=== PATIENT | male | born 1945 | race Caucasian/White ===

== ENCOUNTER 2017-11-12 09:10 | Day surgery (SDC) | payer MEDICARE, OTHER ==
[~2017-11-12] VITALS: Ht 182.9 cm; Wt 105.8 kg
[~2017-11-12 09:10] MED LIST: ACET325 PO; ASPI81CH; ASPI81CH PO; ASPI81EC; ATOR10; ATOR40TA PO; CLOB.05TC; DIAZ5 PO; DIPH50; DIPH50 PO; FLEC100; GALA8 PO; HYDR-86 PO; IBUP800; LATA.005SO; LOSA50 PO; MELA3; MELA3 PO; METO50 PO; MIRALAX17 GM PO; MULVITA; OMEPRAZOLE MAGN20 MG PO; POTCHL20ER PO; TAMS.4ER PO; TIMO.25OPS BOTHEYES; TIMOPTIC 0.5%1 EACH BOTHEYES; TRAM50; TRAZ100; TRAZ100 PO; TRIHYD253B PO; TRIHYD5075; Xalatan2.5 ML BOTHEYES; ZIOPTAN 0.00151 EACH BOTHEYES; ZOLP10; ZOLP10 PO
== END 2017-11-12 11:39 | disposition home or self-care (01) ==
LOC: ORSCSDS 09:10
PROVIDERS: Internal Medicine Gastroenterology
PROC: 0DJD8ZZ Inspection of Lower Intestinal Tract, Via Natural or Artificial Opening Endoscopic (ICD-10-PCS; principal; 2017-11-12 10:30)
DX: Z12.11 Encounter for screening for malignant neoplasm of colon (principal); K57.30 Diverticulosis of large intestine without perforation or abscess without bleeding; Z83.71 Family history of colonic polyps; I10 Essential (primary) hypertension; Z95.0 Presence of cardiac pacemaker; Z87.891 Personal history of nicotine dependence; I48.0 Paroxysmal atrial fibrillation; Z79.82 Long term (current) use of aspirin; Z79.899 Other long term (current) drug therapy
CPT/HCPCS: J7120

== ENCOUNTER 2018-04-21 17:32 | Emergency (ER) | payer MEDICARE, OTHER ==
[~2018-04-21] VITALS: Ht 182.9 cm; Wt 106.1 kg
== END 2018-04-21 19:10 | disposition home or self-care (01) ==
LOC: ER 17:32
DX: T83.091A Other mechanical complication of indwelling urethral catheter, initial encounter (principal); I48.91 Unspecified atrial fibrillation; Z88.2 Allergy status to sulfonamides; Z79.899 Other long term (current) drug therapy; Z79.82 Long term (current) use of aspirin
CPT/HCPCS: 99282

== ENCOUNTER 2019-02-26 06:53 | Emergency (ER) | payer MEDICARE, OTHER ==
[~2019-02-26] VITALS: Ht 182.9 cm; Wt 108.9 kg
[~2019-02-26 06:53] MED LIST changes: +TIMO.5OPSO BOTHEYES; -TIMOPTIC 0.5%1 EACH BOTHEYES
[2019-02-26] MEDS ORDERED: Norco 7.5-3251 EACH PO (07:27)
[2019-02-26] MEDS ORDERED: MYRBETRIQ50 MG PO (07:30)
[2019-02-26] MEDS ORDERED: Prednisone20 MG PO (08:12)
[2019-02-26] MEDS ORDERED: Robaxin-750750 MG PO (08:12)
== END 2019-02-26 08:18 | disposition home or self-care (01) ==
LOC: ER 06:53
DX: M54.17 Radiculopathy, lumbosacral region (principal); I48.91 Unspecified atrial fibrillation
CPT/HCPCS: 72100; 99283-25; J7512

== ENCOUNTER → 2019-08-27 | Outpatient (CLI) | payer MEDICARE, OTHER ==
[~2019-08-27] MED LIST changes: +MYRBETRIQ50 MG PO; +Norco 7.5-3251 EACH PO; +Prednisone20 MG PO; +Robaxin-750750 MG PO
== END | disposition home or self-care (01) ==
LOC: LAB SHORT 13:43 → PLD 13:43
DX: D48.5 Neoplasm of uncertain behavior of skin (principal)
CPT/HCPCS: 88305

== ENCOUNTER → 2020-12-30 | Outpatient (CLI) | payer MEDICARE, OTHER ==
[2020-12-30 13:17] LABS: Stool Occult Bld Immuno 1 Negative (NEGATIVE)
== END | disposition home or self-care (01) ==
LOC: LAB SHORT 08:00 → LAB 08:00
PROVIDERS: Family Medicine
DX: K92.1 Melena (principal)
CPT/HCPCS: 82274

== ENCOUNTER → 2021-06-21 | Outpatient (CLI) | payer MEDICARE, OTHER | END | disposition home or self-care (01) | LOC: LAB SHORT 13:02 | PROVIDERS: Family Medicine | DX: M51.36 Other intervertebral disc degeneration, lumbar region (principal); G89.4 Chronic pain syndrome | CPT/HCPCS: G0480 ==

== ENCOUNTER → 2022-04-14 | Outpatient (CLI) | payer MEDICARE, OTHER ==
[2022-04-14 12:28] LABS: Hematocrit 38.2 % (37.0-53.0); Hemoglobin 13.3 g/dL (13.5-17.5); Mean Corpuscular HGB 30.3 pg (26.0-34.0); Mean Corpuscular HGB Conc 34.8 g/dL (31.5-36.5); Mean Corpuscular Volume 87 fL (80-100); Mean Platelet Volume 9.3 fL (9.1-12.4); Platelet Count 196 K/mm3 (150-400); RDW Coefficient Variation 13.6 % (11.7-14.2); RDW Standard Deviation 43.2 fL (35.1-46.3); Red Blood Cell Count 4.39 M/mm3 (4.30-5.90); White Blood Cell Count 4.13 K/mm3 (4.00-11.30)
== END | disposition home or self-care (01) ==
LOC: LAB 11:39 → LAB SHORT 11:39
PROVIDERS: Family Medicine
DX: D64.9 Anemia, unspecified (principal)
CPT/HCPCS: 36415; 85027

== ENCOUNTER 2022-06-29 14:08 | Emergency (ER) | payer MEDICARE, OTHER ==
[~2022-06-29] VITALS: Ht 182.9 cm; Wt 117.9 kg
[2022-06-29 14:47] LABS: BASOPHILS ABSOLUTE AUTO 0.03 K/mm3 (0.00-0.23); BASOPHILS PERCENT AUTO 1 % (0-2); EOSINOPHILS ABSOLUTE AUTO 0.06 K/mm3 (0.00-0.68); EOSINOPHILS PERCENT AUTO 1 % (0-6); Hematocrit 39.8 % (37.0-53.0); Hemoglobin 13.5 g/dL (13.5-17.5); IMMATURE GRAN ABSOLUTE AUTO 0.03 K/mm3 (0.00-0.10); IMMATURE GRAN PERCENT AUTO 1 % (0-1); LYMPHOCYTES ABSOLUTE AUTO 1.14 K/mm3 (0.84-5.20); LYMPHOCYTES PERCENT AUTO 27 % (21-46); MONOCYTES PERCENT AUTO 12 % (4-13); Mean Corpuscular HGB 29.5 pg (26.0-34.0); Mean Corpuscular HGB Conc 33.9 g/dL (31.5-36.5); Mean Corpuscular Volume 87 fL (80-100); Mean Platelet Volume 9.3 fL (9.1-12.4); NEUTROPHILS PERCENT AUTO 58 % (41-73); Platelet Count 204 K/mm3 (150-400); RDW Coefficient Variation 13.8 % (11.7-14.2); RDW Standard Deviation 43.7 fL (35.1-46.3); Red Blood Cell Count 4.57 M/mm3 (4.30-5.90); White Blood Cell Count 4.16 K/mm3 (4.00-11.30)
[2022-06-29 15:04] LABS: Albumin, Blood 3.6 g/dL (3.4-5.0); Albumin/Globulin Ratio 0.9 (0.8-1.8); Bilirubin, Total 0.6 mg/dL (0.1-1.0); Bun/Creatinine Ratio 24.3 (12.0-20.0); Calcium, Blood 9.1 mg/dL (8.5-10.1); Creatinine, Blood 1.15 mg/dL (0.60-1.20); Globulin, Blood 4.1 g/dL (2.2-4.0); Potassium, Blood 4.7 mmol/L (3.5-5.5); Total Protein, Blood 7.7 g/dL (6.4-8.2)
== END 2022-06-29 20:35 | disposition home or self-care (01) ==
LOC: ER 14:08
PROVIDERS: Student in an Organized Health Care Education/Training Program
DX: H81.392 Other peripheral vertigo, left ear (principal); H61.22 Impacted cerumen, left ear; Z88.2 Allergy status to sulfonamides; Z79.899 Other long term (current) drug therapy; Z79.82 Long term (current) use of aspirin; I48.91 Unspecified atrial fibrillation; Z79.52 Long term (current) use of systemic steroids
CPT/HCPCS: 36415; 70450; 80053; 85025; 93005; 93010; 99284-25; A9270

== ENCOUNTER → 2022-09-26 | Outpatient (CLI) | payer MEDICARE, OTHER ==
[2022-09-26 09:56] LABS: BASOPHILS ABSOLUTE AUTO 0.01 K/mm3 (0.00-0.23); BASOPHILS PERCENT AUTO 0 % (0-2); EOSINOPHILS ABSOLUTE AUTO 0.08 K/mm3 (0.00-0.68); EOSINOPHILS PERCENT AUTO 2 % (0-6); Hematocrit 37.9 % (37.0-53.0); Hemoglobin 12.9 g/dL (13.5-17.5); IMMATURE GRAN ABSOLUTE AUTO 0.05 K/mm3 (0.00-0.10); IMMATURE GRAN PERCENT AUTO 1 % (0-1); LYMPHOCYTES ABSOLUTE AUTO 0.69 K/mm3 (0.84-5.20); LYMPHOCYTES PERCENT AUTO 19 % (21-46); MONOCYTES ABSOLUTE AUTO 0.34 K/mm3 (0.16-1.47); MONOCYTES PERCENT AUTO 9 % (4-13); Mean Corpuscular HGB 29.5 pg (26.0-34.0); Mean Corpuscular Volume 87 fL (80-100); NEUTROPHILS PERCENT AUTO 68 % (41-73); Platelet Count 186 K/mm3 (150-400); RDW Coefficient Variation 14.3 % (11.7-14.2); RDW Standard Deviation 44.8 fL (35.1-46.3); Red Blood Cell Count 4.38 M/mm3 (4.30-5.90); White Blood Cell Count 3.67 K/mm3 (4.00-11.30)
[2022-09-26 10:03] LABS: Albumin, Blood 3.5 g/dL (3.4-5.0); Albumin/Globulin Ratio 0.8 (0.8-1.8); Bilirubin, Total 0.4 mg/dL (0.1-1.0); Bun/Creatinine Ratio 19.4 (12.0-20.0); Creatinine, Blood 1.6 mg/dL (0.60-1.20); Globulin, Blood 4.2 g/dL (2.2-4.0); Potassium, Blood 3.9 mmol/L (3.5-5.5); Total Protein, Blood 7.7 g/dL (6.4-8.2)
[2022-09-26 10:15] LABS: Source, Urine Clean Catch
[2022-09-26 10:27] LABS: Bacteria Few /hpf; Red Blood Cells, Urine TNTC /hpf (0-2); Squamous Epithelial Cells Rare /hpf (Few)
== END | disposition home or self-care (01) ==
LOC: LAB SHORT 09:20 → LAB 09:20
PROVIDERS: Physician Assistant
DX: R31.9 Hematuria, unspecified (principal)
CPT/HCPCS: 80053; 81015; 85025; 87086

== ENCOUNTER → 2022-10-06 | Outpatient (CLI) | payer MEDICARE, OTHER | END | disposition home or self-care (01) | LOC: LAB SHORT 08:40 → LAB 08:40 | DX: R31.9 Hematuria, unspecified (principal) | CPT/HCPCS: 87086 ==

== ENCOUNTER 2022-11-08 04:34 | Day surgery (SDC) | payer MEDICARE, OTHER | END 2022-11-08 22:44 | disposition home or self-care (01) | LOC: HBO 04:34 | DX: L59.8 Other specified disorders of the skin and subcutaneous tissue related to radiation (principal); N30.41 Irradiation cystitis with hematuria | CPT/HCPCS: G0277 ==

== ENCOUNTER 2022-11-09 01:35 | Day surgery (SDC) | payer MEDICARE, OTHER | END 2022-11-09 22:56 | disposition home or self-care (01) | LOC: HBO 01:35 | DX: N30.41 Irradiation cystitis with hematuria (principal); L59.8 Other specified disorders of the skin and subcutaneous tissue related to radiation | CPT/HCPCS: G0277 ==

== ENCOUNTER 2022-11-10 01:00 | Day surgery (SDC) | payer MEDICARE, OTHER | END 2022-11-10 22:40 | disposition home or self-care (01) | LOC: HBO 01:00 | DX: L59.8 Other specified disorders of the skin and subcutaneous tissue related to radiation (principal); N30.41 Irradiation cystitis with hematuria | CPT/HCPCS: G0463 ==

== ENCOUNTER 2022-11-20 00:29 | Day surgery (SDC) | payer MEDICARE, OTHER | END 2022-11-20 22:59 | disposition home or self-care (01) | LOC: HBO 00:29 | DX: L59.8 Other specified disorders of the skin and subcutaneous tissue related to radiation (principal); N30.41 Irradiation cystitis with hematuria | CPT/HCPCS: G0277 ==

== ENCOUNTER 2022-11-21 01:15 | Day surgery (SDC) | payer MEDICARE, OTHER | END 2022-11-21 22:56 | disposition home or self-care (01) | LOC: HBO 01:15 | DX: L59.8 Other specified disorders of the skin and subcutaneous tissue related to radiation (principal); N30.41 Irradiation cystitis with hematuria | CPT/HCPCS: G0277 ==

== ENCOUNTER 2022-11-22 04:07 | Day surgery (SDC) | payer MEDICARE, OTHER | END 2022-11-22 23:05 | disposition home or self-care (01) | LOC: HBO 04:07 | DX: L59.8 Other specified disorders of the skin and subcutaneous tissue related to radiation (principal); N30.41 Irradiation cystitis with hematuria | CPT/HCPCS: G0277 ==

== ENCOUNTER 2022-11-23 02:59 | Day surgery (SDC) | payer MEDICARE, OTHER | END 2022-11-23 22:41 | disposition home or self-care (01) | LOC: HBO 02:59 | DX: L59.8 Other specified disorders of the skin and subcutaneous tissue related to radiation (principal); N30.41 Irradiation cystitis with hematuria | CPT/HCPCS: G0277 ==

== ENCOUNTER 2022-11-28 02:56 | Day surgery (SDC) | payer MEDICARE, OTHER | END 2022-11-28 23:20 | disposition home or self-care (01) | LOC: HBO 02:56 | DX: L59.8 Other specified disorders of the skin and subcutaneous tissue related to radiation (principal); N30.41 Irradiation cystitis with hematuria | CPT/HCPCS: G0277 ==

== ENCOUNTER 2022-11-29 01:22 | Day surgery (SDC) | payer MEDICARE, OTHER | END 2022-11-29 23:14 | disposition home or self-care (01) | LOC: HBO 01:22 | DX: L59.8 Other specified disorders of the skin and subcutaneous tissue related to radiation (principal); N30.41 Irradiation cystitis with hematuria | CPT/HCPCS: G0277 ==

== ENCOUNTER 2022-11-30 04:09 | Day surgery (SDC) | payer MEDICARE, OTHER | END 2022-11-30 23:00 | disposition home or self-care (01) | LOC: HBO 04:09 | DX: N30.41 Irradiation cystitis with hematuria (principal); L59.8 Other specified disorders of the skin and subcutaneous tissue related to radiation | CPT/HCPCS: G0277 ==

== ENCOUNTER 2022-12-01 03:12 | Day surgery (SDC) | payer MEDICARE, OTHER | END 2022-12-01 22:47 | disposition home or self-care (01) | LOC: HBO 03:12 | DX: L59.8 Other specified disorders of the skin and subcutaneous tissue related to radiation (principal); N30.41 Irradiation cystitis with hematuria | CPT/HCPCS: G0277 ==

== ENCOUNTER 2022-12-04 02:17 | Day surgery (SDC) | payer MEDICARE, OTHER | END 2022-12-04 22:55 | disposition home or self-care (01) | LOC: HBO 02:17 | DX: L59.8 Other specified disorders of the skin and subcutaneous tissue related to radiation (principal); N30.41 Irradiation cystitis with hematuria; Y84.2 Radiological procedure and radiotherapy as the cause of abnormal reaction of the patient, or of later complication, without mention of misadventure at the time of the procedure | CPT/HCPCS: G0277 ==

== ENCOUNTER 2022-12-06 02:52 | Day surgery (SDC) | payer MEDICARE, OTHER | END 2022-12-06 22:51 | disposition home or self-care (01) | LOC: HBO 02:52 | DX: L59.8 Other specified disorders of the skin and subcutaneous tissue related to radiation (principal); N30.41 Irradiation cystitis with hematuria | CPT/HCPCS: G0277 ==

== ENCOUNTER 2022-12-07 02:36 | Day surgery (SDC) | payer MEDICARE, OTHER | END 2022-12-07 23:36 | disposition home or self-care (01) | LOC: HBO 02:36 | DX: L59.8 Other specified disorders of the skin and subcutaneous tissue related to radiation (principal); N30.41 Irradiation cystitis with hematuria | CPT/HCPCS: G0277 ==

== ENCOUNTER 2022-12-08 01:20 | Day surgery (SDC) | payer MEDICARE, OTHER | END 2022-12-08 23:09 | disposition home or self-care (01) | LOC: HBO 01:20 | DX: L59.8 Other specified disorders of the skin and subcutaneous tissue related to radiation (principal); N30.41 Irradiation cystitis with hematuria; Y84.2 Radiological procedure and radiotherapy as the cause of abnormal reaction of the patient, or of later complication, without mention of misadventure at the time of the procedure | CPT/HCPCS: G0277; G0463 ==

== ENCOUNTER 2022-12-08 01:27 | Day surgery (SDC) | payer MEDICARE, OTHER | END 2022-12-08 23:09 | disposition home or self-care (01) | LOC: WOUND 01:27 | DX: L59.8 Other specified disorders of the skin and subcutaneous tissue related to radiation (principal); N30.41 Irradiation cystitis with hematuria; Y84.2 Radiological procedure and radiotherapy as the cause of abnormal reaction of the patient, or of later complication, without mention of misadventure at the time of the procedure | CPT/HCPCS: G0463 ==

== ENCOUNTER 2022-12-11 02:02 | Day surgery (SDC) | payer MEDICARE, OTHER | END 2022-12-11 22:40 | disposition home or self-care (01) | LOC: HBO 02:02 | DX: L59.8 Other specified disorders of the skin and subcutaneous tissue related to radiation (principal); N30.41 Irradiation cystitis with hematuria; Y84.2 Radiological procedure and radiotherapy as the cause of abnormal reaction of the patient, or of later complication, without mention of misadventure at the time of the procedure | CPT/HCPCS: G0277 ==

== ENCOUNTER 2022-12-12 02:03 | Day surgery (SDC) | payer MEDICARE, OTHER | END 2022-12-12 22:42 | disposition home or self-care (01) | LOC: HBO 02:03 | DX: L59.8 Other specified disorders of the skin and subcutaneous tissue related to radiation (principal); N30.41 Irradiation cystitis with hematuria; Y84.2 Radiological procedure and radiotherapy as the cause of abnormal reaction of the patient, or of later complication, without mention of misadventure at the time of the procedure | CPT/HCPCS: G0277 ==

== ENCOUNTER 2022-12-13 02:23 | Day surgery (SDC) | payer MEDICARE, OTHER | END 2022-12-13 23:08 | disposition home or self-care (01) | LOC: HBO 02:23 | DX: L59.8 Other specified disorders of the skin and subcutaneous tissue related to radiation (principal); N30.41 Irradiation cystitis with hematuria; Y84.2 Radiological procedure and radiotherapy as the cause of abnormal reaction of the patient, or of later complication, without mention of misadventure at the time of the procedure | CPT/HCPCS: G0277 ==

== ENCOUNTER 2022-12-14 01:08 | Day surgery (SDC) | payer MEDICARE, OTHER | END 2022-12-14 22:57 | disposition home or self-care (01) | LOC: HBO 01:08 | DX: L59.8 Other specified disorders of the skin and subcutaneous tissue related to radiation (principal); N30.41 Irradiation cystitis with hematuria | CPT/HCPCS: G0277 ==

== ENCOUNTER 2022-12-15 00:43 | Day surgery (SDC) | payer MEDICARE, OTHER | END 2022-12-15 22:53 | disposition home or self-care (01) | LOC: HBO 00:43 | DX: L59.8 Other specified disorders of the skin and subcutaneous tissue related to radiation (principal); N30.41 Irradiation cystitis with hematuria; Y84.2 Radiological procedure and radiotherapy as the cause of abnormal reaction of the patient, or of later complication, without mention of misadventure at the time of the procedure | CPT/HCPCS: G0277 ==

== ENCOUNTER 2022-12-18 02:14 | Day surgery (SDC) | payer MEDICARE, OTHER | END 2022-12-18 22:58 | disposition home or self-care (01) | LOC: HBO 02:14 | DX: L59.8 Other specified disorders of the skin and subcutaneous tissue related to radiation (principal); N30.41 Irradiation cystitis with hematuria | CPT/HCPCS: G0277 ==

== ENCOUNTER 2022-12-19 01:41 | Day surgery (SDC) | payer MEDICARE, OTHER | END 2022-12-19 22:45 | disposition home or self-care (01) | LOC: HBO 01:41 | DX: L59.8 Other specified disorders of the skin and subcutaneous tissue related to radiation (principal); N30.41 Irradiation cystitis with hematuria | CPT/HCPCS: G0277 ==

== ENCOUNTER 2022-12-20 05:26 | Day surgery (SDC) | payer MEDICARE, OTHER | END 2022-12-20 22:44 | disposition home or self-care (01) | LOC: HBO 05:26 | DX: L59.8 Other specified disorders of the skin and subcutaneous tissue related to radiation (principal); N30.41 Irradiation cystitis with hematuria; Y84.2 Radiological procedure and radiotherapy as the cause of abnormal reaction of the patient, or of later complication, without mention of misadventure at the time of the procedure | CPT/HCPCS: G0277 ==

== ENCOUNTER 2022-12-21 03:58 | Day surgery (SDC) | payer MEDICARE, OTHER | END 2022-12-21 23:19 | disposition home or self-care (01) | LOC: HBO 03:58 | DX: L59.8 Other specified disorders of the skin and subcutaneous tissue related to radiation (principal); N30.41 Irradiation cystitis with hematuria | CPT/HCPCS: G0277 ==

== ENCOUNTER 2022-12-22 02:25 | Day surgery (SDC) | payer MEDICARE, OTHER | END 2022-12-22 23:08 | disposition home or self-care (01) | LOC: HBO 02:25 | DX: L59.8 Other specified disorders of the skin and subcutaneous tissue related to radiation (principal); N30.41 Irradiation cystitis with hematuria; Y84.2 Radiological procedure and radiotherapy as the cause of abnormal reaction of the patient, or of later complication, without mention of misadventure at the time of the procedure | CPT/HCPCS: G0277 ==

== ENCOUNTER 2022-12-25 00:45 | Day surgery (SDC) | payer MEDICARE, OTHER | END 2022-12-25 22:46 | disposition home or self-care (01) | LOC: HBO 00:45 | DX: L59.8 Other specified disorders of the skin and subcutaneous tissue related to radiation (principal); N30.41 Irradiation cystitis with hematuria; Y84.2 Radiological procedure and radiotherapy as the cause of abnormal reaction of the patient, or of later complication, without mention of misadventure at the time of the procedure | CPT/HCPCS: G0277 ==

== ENCOUNTER 2022-12-26 02:15 | Day surgery (SDC) | payer MEDICARE, OTHER | END 2022-12-26 22:35 | disposition home or self-care (01) | LOC: HBO 02:15 | DX: N30.41 Irradiation cystitis with hematuria (principal); L59.8 Other specified disorders of the skin and subcutaneous tissue related to radiation | CPT/HCPCS: G0277 ==

== ENCOUNTER 2022-12-27 02:49 | Day surgery (SDC) | payer MEDICARE, OTHER | END 2022-12-27 22:54 | disposition home or self-care (01) | LOC: HBO 02:49 | DX: L59.8 Other specified disorders of the skin and subcutaneous tissue related to radiation (principal); N30.41 Irradiation cystitis with hematuria; Y84.2 Radiological procedure and radiotherapy as the cause of abnormal reaction of the patient, or of later complication, without mention of misadventure at the time of the procedure | CPT/HCPCS: G0277 ==

== ENCOUNTER 2022-12-28 00:38 | Day surgery (SDC) | payer MEDICARE, OTHER | END 2022-12-28 22:44 | disposition home or self-care (01) | LOC: HBO 00:38 | DX: L59.8 Other specified disorders of the skin and subcutaneous tissue related to radiation (principal); N30.41 Irradiation cystitis with hematuria; Y84.2 Radiological procedure and radiotherapy as the cause of abnormal reaction of the patient, or of later complication, without mention of misadventure at the time of the procedure | CPT/HCPCS: G0277 ==

== ENCOUNTER 2023-01-01 01:36 | Day surgery (SDC) | payer MEDICARE, OTHER | END 2023-01-01 22:54 | disposition home or self-care (01) | LOC: HBO 01:36 | DX: L59.8 Other specified disorders of the skin and subcutaneous tissue related to radiation (principal); N30.41 Irradiation cystitis with hematuria | CPT/HCPCS: G0277 ==

== ENCOUNTER 2023-01-02 00:55 | Day surgery (SDC) | payer MEDICARE, OTHER | END 2023-01-02 22:51 | disposition home or self-care (01) | LOC: HBO 00:55 | DX: L59.8 Other specified disorders of the skin and subcutaneous tissue related to radiation (principal); N30.41 Irradiation cystitis with hematuria; Y84.2 Radiological procedure and radiotherapy as the cause of abnormal reaction of the patient, or of later complication, without mention of misadventure at the time of the procedure | CPT/HCPCS: G0277 ==

== ENCOUNTER 2023-01-03 01:17 | Day surgery (SDC) | payer MEDICARE, OTHER | END 2023-01-03 22:48 | disposition home or self-care (01) | LOC: HBO 01:17 | DX: N30.41 Irradiation cystitis with hematuria (principal); L59.8 Other specified disorders of the skin and subcutaneous tissue related to radiation | CPT/HCPCS: G0277 ==

== ENCOUNTER 2023-01-05 00:53 | Day surgery (SDC) | payer MEDICARE, OTHER | END 2023-01-05 22:45 | disposition home or self-care (01) | LOC: HBO 00:53 | DX: N30.41 Irradiation cystitis with hematuria (principal); L59.8 Other specified disorders of the skin and subcutaneous tissue related to radiation | CPT/HCPCS: G0277 ==

== ENCOUNTER 2023-01-10 02:18 | Day surgery (SDC) | payer MEDICARE, OTHER | END 2023-01-10 23:01 | disposition home or self-care (01) | LOC: HBO 02:18 | DX: L59.8 Other specified disorders of the skin and subcutaneous tissue related to radiation (principal); N30.41 Irradiation cystitis with hematuria; Y84.2 Radiological procedure and radiotherapy as the cause of abnormal reaction of the patient, or of later complication, without mention of misadventure at the time of the procedure | CPT/HCPCS: G0277 ==

== ENCOUNTER 2023-01-11 01:21 | Day surgery (SDC) | payer MEDICARE, OTHER | END 2023-01-11 22:38 | disposition home or self-care (01) | LOC: HBO 01:21 | DX: L59.8 Other specified disorders of the skin and subcutaneous tissue related to radiation (principal); N30.41 Irradiation cystitis with hematuria; Y84.2 Radiological procedure and radiotherapy as the cause of abnormal reaction of the patient, or of later complication, without mention of misadventure at the time of the procedure | CPT/HCPCS: G0277 ==

== ENCOUNTER 2023-01-12 01:39 | Day surgery (SDC) | payer MEDICARE, OTHER | END 2023-01-12 22:51 | disposition home or self-care (01) | LOC: HBO 01:39 | DX: L59.8 Other specified disorders of the skin and subcutaneous tissue related to radiation (principal); N30.41 Irradiation cystitis with hematuria | CPT/HCPCS: G0277 ==

== ENCOUNTER 2023-01-15 01:09 | Day surgery (SDC) | payer MEDICARE, OTHER | END 2023-01-15 22:48 | disposition home or self-care (01) | LOC: HBO 01:09 | DX: L59.8 Other specified disorders of the skin and subcutaneous tissue related to radiation (principal); N30.41 Irradiation cystitis with hematuria | CPT/HCPCS: G0277 ==

== ENCOUNTER 2023-01-18 01:25 | Day surgery (SDC) | payer MEDICARE, OTHER | END 2023-01-18 22:52 | disposition home or self-care (01) | LOC: HBO 01:25 | DX: L59.8 Other specified disorders of the skin and subcutaneous tissue related to radiation (principal); N30.41 Irradiation cystitis with hematuria | CPT/HCPCS: G0277 ==

== ENCOUNTER 2023-01-19 00:42 | Day surgery (SDC) | payer MEDICARE, OTHER | END 2023-01-19 22:41 | disposition home or self-care (01) | LOC: HBO 00:42 | DX: L59.8 Other specified disorders of the skin and subcutaneous tissue related to radiation (principal); N30.41 Irradiation cystitis with hematuria; Y84.2 Radiological procedure and radiotherapy as the cause of abnormal reaction of the patient, or of later complication, without mention of misadventure at the time of the procedure | CPT/HCPCS: G0277 ==

== ENCOUNTER 2023-01-22 01:59 | Day surgery (SDC) | payer MEDICARE, OTHER | END 2023-01-22 23:01 | disposition home or self-care (01) | LOC: HBO 01:59 | DX: N30.41 Irradiation cystitis with hematuria (principal); L59.8 Other specified disorders of the skin and subcutaneous tissue related to radiation | CPT/HCPCS: G0277 ==

== ENCOUNTER 2023-01-23 02:27 | Day surgery (SDC) | payer MEDICARE, OTHER | END 2023-01-23 23:00 | disposition home or self-care (01) | LOC: HBO 02:27 | DX: N30.41 Irradiation cystitis with hematuria (principal); L59.8 Other specified disorders of the skin and subcutaneous tissue related to radiation | CPT/HCPCS: G0277 ==

== ENCOUNTER 2023-02-07 02:20 | Day surgery (SDC) | payer MEDICARE, OTHER | END 2023-02-07 23:49 | disposition home or self-care (01) | LOC: HBO 02:20 | DX: N30.41 Irradiation cystitis with hematuria (principal); L59.8 Other specified disorders of the skin and subcutaneous tissue related to radiation | CPT/HCPCS: G0277 ==

== ENCOUNTER 2023-02-08 08:00 | Day surgery (SDC) | payer MEDICARE, OTHER | END 2023-02-08 23:59 | disposition home or self-care (01) | LOC: HBO 08:00 | DX: L59.8 Other specified disorders of the skin and subcutaneous tissue related to radiation (principal); N30.41 Irradiation cystitis with hematuria | CPT/HCPCS: G0277 ==

== ENCOUNTER 2023-02-09 00:31 | Day surgery (SDC) | payer MEDICARE, OTHER | END 2023-02-09 22:47 | disposition home or self-care (01) | LOC: HBO 00:31 | DX: L59.8 Other specified disorders of the skin and subcutaneous tissue related to radiation (principal); N30.41 Irradiation cystitis with hematuria | CPT/HCPCS: G0277 ==

== ENCOUNTER 2023-02-12 00:55 | Day surgery (SDC) | payer MEDICARE, OTHER | END 2023-02-12 23:11 | disposition home or self-care (01) | LOC: HBO 00:55 | DX: N30.41 Irradiation cystitis with hematuria (principal); L59.8 Other specified disorders of the skin and subcutaneous tissue related to radiation; N18.31 Chronic kidney disease, stage 3a; E55.9 Vitamin D deficiency, unspecified; E66.9 Obesity, unspecified | CPT/HCPCS: 36415; 80069; 81001; 82306; 82570; 83036; 83970; 84156; 87086; G0277 ==

== ENCOUNTER 2023-02-13 02:24 | Day surgery (SDC) | payer MEDICARE, OTHER | END 2023-02-13 22:46 | disposition home or self-care (01) | LOC: HBO 02:24 | DX: L59.8 Other specified disorders of the skin and subcutaneous tissue related to radiation (principal); N30.41 Irradiation cystitis with hematuria | CPT/HCPCS: G0277 ==

== ENCOUNTER 2023-02-14 02:31 | Day surgery (SDC) | payer MEDICARE, OTHER | END 2023-02-15 23:35 | disposition home or self-care (01) | LOC: HBO 02:31 | DX: L59.8 Other specified disorders of the skin and subcutaneous tissue related to radiation (principal); N30.41 Irradiation cystitis with hematuria | CPT/HCPCS: G0277 ==

== ENCOUNTER 2023-02-15 01:53 | Day surgery (SDC) | payer MEDICARE, OTHER | END 2023-02-15 23:35 | disposition home or self-care (01) | LOC: HBO 01:53 | DX: L59.8 Other specified disorders of the skin and subcutaneous tissue related to radiation (principal); N30.41 Irradiation cystitis with hematuria | CPT/HCPCS: G0277 ==

== ENCOUNTER 2023-02-16 02:33 | Day surgery (SDC) | payer MEDICARE, OTHER | END 2023-02-16 22:44 | disposition home or self-care (01) | LOC: HBO 02:33 | DX: N30.41 Irradiation cystitis with hematuria (principal); L59.8 Other specified disorders of the skin and subcutaneous tissue related to radiation | CPT/HCPCS: G0277 ==

== ENCOUNTER 2023-02-19 01:56 | Day surgery (SDC) | payer MEDICARE, OTHER | END 2023-02-19 22:52 | disposition home or self-care (01) | LOC: HBO 01:56 | DX: N30.41 Irradiation cystitis with hematuria (principal); L59.8 Other specified disorders of the skin and subcutaneous tissue related to radiation | CPT/HCPCS: G0277 ==

== ENCOUNTER 2023-02-20 01:43 | Day surgery (SDC) | payer MEDICARE, OTHER | END 2023-02-20 22:39 | disposition home or self-care (01) | LOC: HBO 01:43 | DX: N30.41 Irradiation cystitis with hematuria (principal); L59.8 Other specified disorders of the skin and subcutaneous tissue related to radiation | CPT/HCPCS: G0277 ==

== ENCOUNTER 2023-02-21 05:05 | Day surgery (SDC) | payer MEDICARE, OTHER | END 2023-02-21 23:07 | disposition home or self-care (01) | LOC: HBO 05:05 | DX: N30.41 Irradiation cystitis with hematuria (principal); L59.8 Other specified disorders of the skin and subcutaneous tissue related to radiation | CPT/HCPCS: G0277 ==

== ENCOUNTER → 2023-02-21 | Outpatient (CLI) | payer MEDICARE, OTHER | END | disposition home or self-care (01) | LOC: LAB SHORT 08:02 → LAB 08:02 | DX: D48.5 Neoplasm of uncertain behavior of skin (principal) | CPT/HCPCS: 88305 ==

== ENCOUNTER 2023-02-22 03:26 | Day surgery (SDC) | payer MEDICARE, OTHER | END 2023-02-22 22:43 | disposition home or self-care (01) | LOC: HBO 03:26 → WOUND 15:04 → HBO 15:04 | DX: N30.41 Irradiation cystitis with hematuria (principal); L59.8 Other specified disorders of the skin and subcutaneous tissue related to radiation | CPT/HCPCS: G0277 ==

== ENCOUNTER 2023-02-23 05:04 | Day surgery (SDC) | payer MEDICARE, OTHER | END 2023-02-23 22:41 | disposition home or self-care (01) | LOC: HBO 05:04 | DX: L59.8 Other specified disorders of the skin and subcutaneous tissue related to radiation (principal); N30.41 Irradiation cystitis with hematuria | CPT/HCPCS: G0277; G0463 ==

== ENCOUNTER → 2023-06-13 | Outpatient (CLI) | payer MEDICARE, OTHER | END | disposition home or self-care (01) | LOC: LAB SHORT 11:17 → LAB 11:17 | DX: L08.9 Local infection of the skin and subcutaneous tissue, unspecified (principal) | CPT/HCPCS: 87070; 87205 ==

== ENCOUNTER 2023-08-10 21:22 | Emergency (ER) | payer OTHER, MEDICARE ==
[~2023-08-10] VITALS: Ht 182.9 cm; Wt 117.9 kg
[2023-08-10 22:24] LABS: BASOPHILS ABSOLUTE AUTO 0.02 K/mm3 (0.00-0.23); BASOPHILS PERCENT AUTO 0 % (0-2); EOSINOPHILS ABSOLUTE AUTO 0.01 K/mm3 (0.00-0.68); EOSINOPHILS PERCENT AUTO 0 % (0-6); Hematocrit 38.4 % (37.0-53.0); Hemoglobin 12.7 g/dL (13.5-17.5); IMMATURE GRAN ABSOLUTE AUTO 0.03 K/mm3 (0.00-0.10); IMMATURE GRAN PERCENT AUTO 0 % (0-1); LYMPHOCYTES ABSOLUTE AUTO 1.41 K/mm3 (0.84-5.20); LYMPHOCYTES PERCENT AUTO 21 % (21-46); MONOCYTES ABSOLUTE AUTO 1.08 K/mm3 (0.16-1.47); MONOCYTES PERCENT AUTO 16 % (4-13); Mean Corpuscular HGB 27.4 pg (26.0-34.0); Mean Corpuscular HGB Conc 33.1 g/dL (31.5-36.5); Mean Corpuscular Volume 83 fL (80-100); Mean Platelet Volume 9.8 fL (9.1-12.4); NEUTROPHILS ABSOLUTE AUTO 4.33 K/mm3 (1.96-9.15); NEUTROPHILS PERCENT AUTO 63 % (41-73); Platelet Count 121 K/mm3 (150-400); RDW Coefficient Variation 14.6 % (11.7-14.2); Red Blood Cell Count 4.63 M/mm3 (4.30-5.90); White Blood Cell Count 6.88 K/mm3 (4.00-11.30)
[2023-08-10 22:48] LABS: Albumin, Blood 3.6 g/dL (3.4-5.0); Albumin/Globulin Ratio 0.9 (0.8-1.8); Bilirubin, Total 0.5 mg/dL (0.1-1.0); Bun/Creatinine Ratio 20.1 (12.0-20.0); Creatinine, Blood 1.54 mg/dL (0.60-1.20); Potassium, Blood 4.6 mmol/L (3.5-5.5); Total Protein, Blood 7.6 g/dL (6.4-8.2)
[2023-08-10] MEDS ORDERED: CefTRIAXone Sodium 1,000 MG in NS 50 ML IV ONE (23:25)
[2023-08-10] MEDS ORDERED: CEPH500 PO (23:31)
[2023-08-10 23:47] LABS: Source, Urine Clean Catch
[2023-08-10 23:50] LABS: Bilirubin, Urine Neg (Neg); Blood, Urine 4+ (Neg); Glucose Qualitative, Urine Neg (Neg); Ketones, Urine Neg (Neg); Leukocyte Esterase, Urine Neg (Neg); Nitrite, Urine Neg (Neg); Protein, Urine 3+ (Neg); Specific Gravity, Urine 1.015 (1.003-1.022); Urobilinogen, Urine NORM (Normal); pH, Urine 6.5 (5.0-8.0)
[2023-08-10 23:56] LABS: Appearance, Urine Clear (Clear); Color, Urine Yellow (P-Yellow)
[2023-08-10 23:57] LABS: Bacteria Not Seen /hpf; Red Blood Cells, Urine 25-50 /hpf (0-2); Squamous Epithelial Cells Rare /hpf (Few); White Blood Cells, Urine Not Seen /hpf (0-5)
[2023-08-11 00:54] VITALS: BP 157/84
== END 2023-08-11 00:54 | disposition home or self-care (01) ==
LOC: ER 21:22
PROVIDERS: Emergency Medicine; Physician Assistant
DX: L03.115 Cellulitis of right lower limb (principal); Z87.828 Personal history of other (healed) physical injury and trauma; I48.91 Unspecified atrial fibrillation; Z79.82 Long term (current) use of aspirin; Z79.899 Other long term (current) drug therapy; Z79.52 Long term (current) use of systemic steroids; Z88.2 Allergy status to sulfonamides; W01.198A Fall on same level from slipping, tripping and stumbling with subsequent striking against other object, initial encounter
CPT/HCPCS: 73080; 80053; 81001; 85025; 96365; 99284-25; J0696

== ENCOUNTER → 2023-08-22 | Outpatient (CLI) | payer MEDICARE, OTHER ==
[~2023-08-22] MED LIST changes: +CEPH500 PO
[2023-08-23 11:59] LABS: C DIFFICILE DNA NEGATIVE (Negative)
== END ==
LOC: LAB 17:07 → LAB SHORT 17:07
PROVIDERS: Family Medicine
DX: R19.7 Diarrhea, unspecified (principal)
CPT/HCPCS: 87493

== ENCOUNTER → 2023-08-23 | Outpatient (CLI) | payer MEDICARE, OTHER | END | disposition home or self-care (01) | LOC: LAB 12:23 → LAB SHORT 12:23 | DX: D48.5 Neoplasm of uncertain behavior of skin (principal) | CPT/HCPCS: 88305 ==

== ENCOUNTER → 2023-08-30 | Outpatient (CLI) | payer MEDICARE, OTHER | END | disposition home or self-care (01) | LOC: LAB EV 08:43 → LAB SHORT 08:43 | DX: K52.9 Noninfective gastroenteritis and colitis, unspecified (principal) ==

== ENCOUNTER → 2024-02-05 | Outpatient (CLI) | payer MEDICARE, OTHER ==
[2024-02-05 13:19] LABS: BASOPHILS ABSOLUTE AUTO 0.02 K/mm3 (0.00-0.23); BASOPHILS PERCENT AUTO 1 % (0-2); EOSINOPHILS ABSOLUTE AUTO 0.01 K/mm3 (0.00-0.68); EOSINOPHILS PERCENT AUTO 0 % (0-6); Hematocrit 39.4 % (37.0-53.0); Hemoglobin 12.9 g/dL (13.5-17.5); IMMATURE GRAN ABSOLUTE AUTO 0.02 K/mm3 (0.00-0.10); IMMATURE GRAN PERCENT AUTO 1 % (0-1); LYMPHOCYTES ABSOLUTE AUTO 1.13 K/mm3 (0.84-5.20); LYMPHOCYTES PERCENT AUTO 27 % (21-46); MONOCYTES ABSOLUTE AUTO 0.96 K/mm3 (0.16-1.47); MONOCYTES PERCENT AUTO 23 % (4-13); Mean Corpuscular HGB 26.9 pg (26.0-34.0); Mean Corpuscular HGB Conc 32.7 g/dL (31.5-36.5); Mean Corpuscular Volume 82 fL (80-100); NEUTROPHILS ABSOLUTE AUTO 1.99 K/mm3 (1.96-9.15); NEUTROPHILS PERCENT AUTO 48 % (41-73); Platelet Count 124 K/mm3 (150-400); RDW Coefficient Variation 14.6 % (11.7-14.2); RDW Standard Deviation 44.6 fL (35.1-46.3); White Blood Cell Count 4.13 K/mm3 (4.00-11.30)
[2024-02-05 21:51] LABS: Alanine Aminotransfer (ALT/SGP 28 U/L (12-78); Albumin, Blood 3.5 g/dL (3.4-5.0); Albumin/Globulin Ratio 0.8 (0.8-1.8); Alk Phos 153 U/L (50-136); Anion Gap 13 mmol/L (3-11); Aspartate Aminotrans (AST/SGOT 30 U/L (12-37); Bilirubin, Total 0.5 mg/dL (0.1-1.0); Blood Urea Nitrogen 24 mg/dL (8-24); Bun/Creatinine Ratio 16.8 (12.0-20.0); C-REACTIVE PROTEIN, EXT RANGE <0.290 mg/dL (0.000-0.300); CO2, Blood 22 mmol/L (21-32); Calcium, Blood 8.9 mg/dL (8.5-10.1); Chloride, Blood 110 mmol/L (98-108); Creatinine, Blood 1.43 mg/dL (0.60-1.20); Ferritin, Serum 24 ng/mL (26-388); Globulin, Blood 4.2 g/dL (2.2-4.0); Glomerular Filtration Rate 51 (60-); Glucose, Blood 105 mg/dL (70-99); Iron Serum 118 ug/dL (65-175); Percent Saturation 30.1 % (20.0-50.0); Potassium, Blood 4.5 mmol/L (3.5-5.5); Sodium, Blood 140 mmol/L (136-145); Total Iron Binding Capacity 392 ug/dL (250-450); Total Protein, Blood 7.7 g/dL (6.4-8.2)
== END | disposition home or self-care (01) ==
LOC: LAB 12:10 → LAB SHORT 12:10
PROVIDERS: Nurse Practitioner Family
DX: R19.7 Diarrhea, unspecified (principal)
CPT/HCPCS: 36415; 80053; 82728; 83540; 83550; 85025; 86140

== ENCOUNTER 2024-02-13 12:58 | Day surgery (SDC) | payer MEDICARE, OTHER ==
[~2024-02-13] VITALS: Ht 182.9 cm; Wt 117.3 kg
[~2024-02-13 12:58] MED LIST changes: +Lactated Ringer's 1,000 ML IV ONE; +Lidocaine HCl/Pf 1% 5 ML VIAL ONE
[2024-02-13] MEDS ORDERED: XARELTO10 M1 PO (13:41)
[2024-02-13] MEDS ORDERED: Lactated Ringer's 1,000 ML IV ONE (14:05)
[2024-02-13] MEDS ORDERED: propofoL 50 ML IV ONE (14:09)
[2024-02-13 15:19] VITALS: BP 114/68
== END 2024-02-13 15:21 | disposition home or self-care (01) ==
LOC: ORSCSDS 12:58
PROVIDERS: Specialist
PROC: 0DBL8ZX Excision of Transverse Colon, Via Natural or Artificial Opening Endoscopic, Diagnostic (ICD-10-PCS; principal; 2024-02-13 14:15)
PROC: 0DBH8ZX Excision of Cecum, Via Natural or Artificial Opening Endoscopic, Diagnostic (ICD-10-PCS; principal; 2024-02-13 14:15)
PROC: 0DBM8ZX Excision of Descending Colon, Via Natural or Artificial Opening Endoscopic, Diagnostic (ICD-10-PCS; principal; 2024-02-13 14:15)
DX: R19.4 Change in bowel habit (principal); D12.3 Benign neoplasm of transverse colon; K51.40 Inflammatory polyps of colon without complications; K63.5 Polyp of colon; K64.8 Other hemorrhoids; K62.7 Radiation proctitis; K57.30 Diverticulosis of large intestine without perforation or abscess without bleeding; Z80.0 Family history of malignant neoplasm of digestive organs; Z83.719 Family history of colon polyps, unspecified; Z85.46 Personal history of malignant neoplasm of prostate; I12.9 Hypertensive chronic kidney disease with stage 1 through stage 4 chronic kidney disease, or unspecified chronic kidney disease; N18.9 Chronic kidney disease, unspecified; E78.5 Hyperlipidemia, unspecified; F32.A Depression, unspecified; I48.0 Paroxysmal atrial fibrillation; Z95.0 Presence of cardiac pacemaker; Z79.899 Other long term (current) drug therapy; Z79.01 Long term (current) use of anticoagulants
CPT/HCPCS: 88305; J2001; J2003; J2704; J7120

== ENCOUNTER 2025-04-20 03:41 | Emergency (ER) | payer MEDICARE, OTHER ==
[~2025-04-20] VITALS: Ht 182.9 cm; Wt 122.5 kg
[~2025-04-20 03:41] MED LIST changes: +BENADRYL25 MG PO; -DIPH50 PO; -GALA8 PO; +GALANTAMINE PO; -Lactated Ringer's 1,000 ML IV ONE; -Lidocaine HCl/Pf 1% 5 ML VIAL ONE; +OMEP20ER PO; -OMEPRAZOLE MAGN20 MG PO; +XARELTO20 MG PO
[2025-04-20 04:26] LABS: BASOPHILS ABSOLUTE AUTO 0.02 K/mm3 (0.00-0.23); BASOPHILS PERCENT AUTO 0 % (0-2); EOSINOPHILS ABSOLUTE AUTO 0.02 K/mm3 (0.00-0.68); EOSINOPHILS PERCENT AUTO 0 % (0-6); Hematocrit 39.6 % (37.0-53.0); Hemoglobin 13.0 g/dL (13.5-17.5); IMMATURE GRAN ABSOLUTE AUTO 0.03 K/mm3 (0.00-0.10); IMMATURE GRAN PERCENT AUTO 1 % (0-1); LYMPHOCYTES ABSOLUTE AUTO 1.47 K/mm3 (0.84-5.20); LYMPHOCYTES PERCENT AUTO 33 % (21-46); MONOCYTES ABSOLUTE AUTO 0.74 K/mm3 (0.16-1.47); MONOCYTES PERCENT AUTO 17 % (4-13); Mean Corpuscular HGB Conc 32.8 g/dL (31.5-36.5); Mean Corpuscular Volume 82 fL (80-100); NEUTROPHILS ABSOLUTE AUTO 2.17 K/mm3 (1.96-9.15); NEUTROPHILS PERCENT AUTO 49 % (41-73); NRBC ABSOLUTE 0.00 K/mm3 (0.00-0.02); NRBC Auto 0.0 /100 WBC (0.0-0.2); Platelet Count 120 K/mm3 (150-400); RDW Coefficient Variation 14.6 % (11.7-14.2); RDW Standard Deviation 42.8 fL (35.1-46.3)
[2025-04-20 04:44] LABS: Alanine Aminotransfer (ALT/SGP 28.0 U/L (12-78); Albumin, Blood 3.7 g/dL (3.4-5.0); Albumin/Globulin Ratio 1.0 (0.8-1.8); Anion Gap 11.0 mmol/L (3-11); Aspartate Aminotrans (AST/SGOT 26.0 U/L (12-37); Bilirubin, Total 0.6 mg/dL (0.1-1.0); Blood Urea Nitrogen 34.0 mg/dL (8-24); CO2, Blood 23.0 mmol/L (21-32); Calcium, Blood 8.8 mg/dL (8.5-10.1); Chloride, Blood 105.0 mmol/L (98-108); Creatinine, Blood 1.68 mg/dL (0.60-1.20); Globulin, Blood 3.8 g/dL (2.2-4.0); Glucose, Blood 111.0 mg/dL (70-99); Potassium, Blood 4.6 mmol/L (3.5-5.5); Sodium, Blood 134.0 mmol/L (136-145); Total Protein, Blood 7.5 g/dL (6.4-8.2)
[2025-04-20] MEDS ORDERED: Tambocor100 MG PO (05:05)
[2025-04-20] MEDS ORDERED: SKYRIZI150 MG/1 M SC (05:06)
[2025-04-20] MEDS ORDERED: DOXA2 PO (05:07)
[2025-04-20] MEDS ORDERED: TRIA50 PO (05:10)
[2025-04-20] MEDS ORDERED: HYDCHL25 PO (05:10)
[2025-04-20] MEDS ORDERED: Lidocaine 2% Viscous Soln 15 ML UDC PO ONE (05:20)
[2025-04-20] MEDS ORDERED: Metoclopramide HCl 5MG / ML 2ML Vial IV ONE (06:05)
[2025-04-20] MEDS ORDERED: Ondansetron HCl 2 MG / ML 2ML Vial IV ONE (07:05)
[2025-04-20 07:30] VITALS: BP 131/91
== END 2025-04-20 07:45 | disposition home or self-care (01) ==
LOC: ER 03:41
PROVIDERS: Emergency Medicine
DX: R07.2 Precordial pain (principal); I48.91 Unspecified atrial fibrillation; Z79.01 Long term (current) use of anticoagulants; Z79.899 Other long term (current) drug therapy; Z88.2 Allergy status to sulfonamides; Z88.8 Allergy status to other drugs, medicaments and biological substances
CPT/HCPCS: 71046; 80053; 83605; 83690; 83880; 84484; 85025; 93005; 93010; A9270; J2405; J2765